=== PATIENT | female | born 1965 | race Caucasian/White ===

== ENCOUNTER 2019-06-13 17:31 | Inpatient (IN) | payer BC, OTHER ==
[~2019-06-13] VITALS: Ht 152.4 cm; Wt 62.1 kg
[2019-06-13 17:32] VITALS: BP 98/64
[2019-06-13 18:00] LABS: URINE BLOOD TRACE (Negative); URINE COLOR YELLOW; URINE GLUCOSE-RANDOM* NEGATIVE (Negative); URINE KETONES TRACE (Negative); URINE NITRITE-REFLEX NEGATIVE (Negative); URINE PROTEIN (DIPSTICK) TRACE (Negative); URINE SPECIFIC GRAVITY 1.015 (1.005-1.035); URINE UROBILINOGEN 0.2 E.U./dl (0.2-1.0)
[2019-06-13 18:02] LABS: ICTOTEST (BILI CONFIRMATORY) Negative (Negative); URINE BILIRUBIN NEGATIVE (Negative); URINE CLARITY HAZY; URINE LEUKOCYTES-REFLEX 3+ (Negative)
[2019-06-13 18:13] LABS: BACTERIA-REFLEX >30 Many /HPF (None Seen); CASTS None Seen /LPF (None Seen); SQUAMOUS >10 Many /LPF (0-3); URINE WBC-REFLEX >25 Many /HPF (0-5)
[2019-06-13 18:14] LABS: CRYSTALS None Seen /LPF (None Seen); URINE RBC 0-2 Rare /HPF (0-2)
[2019-06-13 19:14] LABS: HEMATOCRIT 32.8 % (37.0-47.0); HEMOGLOBIN 10.9 gm/dL (12.0-15.0); MCH 30.8 pg (26.0-34.0); MCHC 33.1 g/dL (28.0-37.0); MCV 92.9 fL (80.0-100.0); PLATELET COUNT 266 thou/uL (150-400); RBC 3.53 mil/uL (4.20-5.00); RDW 13.2 % (10.5-14.5); WBC 21.5 thou/uL (4.0-11.0)
[2019-06-13 19:25] LABS: CALCIUM 8.2 mg/dL (8.5-10.1); POTASSIUM 3.3 mmol/L (3.5-5.1)
[2019-06-13 19:30] LABS: ALBUMIN 2.7 g/dL (3.4-5.0); TOTAL BILIRUBIN 0.4 mg/dL (<0.1-1.0); TOTAL PROTEIN 5.8 g/dL (6.4-8.2)
[2019-06-13 19:47] LABS: ABSOLUTE NEUTROPHILS 19.4 thou/uL (1.4-8.2)
[2019-06-13 20:56] VITALS: BP 106/67
[2019-06-13 22:10] VITALS: BP 108/66
[2019-06-14 04:37] VITALS: BP 96/58
[2019-06-14 06:13] LABS: HEMATOCRIT 32.4 % (37.0-47.0); HEMOGLOBIN 10.6 gm/dL (12.0-15.0); MCH 30.3 pg (26.0-34.0); MCHC 32.7 g/dL (28.0-37.0); MCV 92.8 fL (80.0-100.0); RBC 3.49 mil/uL (4.20-5.00); RDW 13.2 % (10.5-14.5); WBC 13.1 thou/uL (4.0-11.0)
[2019-06-14 06:32] LABS: CALCIUM 8.2 mg/dL (8.5-10.1); CREATININE 0.7 mg/dL (0.6-1.0); POTASSIUM 3.3 mmol/L (3.5-5.1)
[2019-06-14 07:58] VITALS: BP 104/60
--- NOTE | 2019-06-14 08:20 | NUR ---
pt oriented to room call light and poc.admitted with pyelonephritis denies pain iv in left forearm infusing ns @125cc's hr voiding qs cloudy light yellow urine slept most of night
[2019-06-14 15:52] VITALS: BP 109/57
--- NOTE | 2019-06-14 18:25 | NUR ---
Assumed pt care at 7am.Assessment completed.vss.Pt requested for home med to be resumed this am.Dr Quintanilla notified but only 3 was granted.Medicated pt with tylenol for flank pain with partial relief.Later this evening,pt c/o bloating and mom was given with relief.Pt mom here,updates given.Ultram given later this evening for headache.Will continue to monitor.
[2019-06-14] MEDS ORDERED: CLONAZEPAM 0.50.5 M1 PO (19:30)
[2019-06-14] MEDS ORDERED: CYMBALTA60 MG PO (19:31)
[2019-06-14] MEDS ORDERED: HYDROCHLOROTHIA25 M2 PO (19:33)
[2019-06-14] MEDS ORDERED: MINIVELLE1 EAC1 PO (19:33)
[2019-06-14] MEDS ORDERED: SYNTHROID25 MC1 PO (19:34)
[2019-06-14] MEDS ORDERED: COZAAR 25 MG TA25 M2 PO (19:35)
[2019-06-14 19:48] VITALS: BP 111/72
--- NOTE | 2019-06-15 04:10 | NUR ---
ASSUMED CARE OF PT AT 1900HRS. PT IS AOX4 AND UP AD ELANA. PT MAKES NEEDS BE KNOWN. PT COMPLAINED OF SOME PAIN AND WAS TREATED WITH PRN PAIN MEDS. VSS AND NO S/S OF ACUTE DISTRESS. PT WAS ABLE TO GET COMFORTABLE AND SLEEP PART OF THE SHIFT. WILL CONTINUE TO MONITOR.
[2019-06-15 07:14] VITALS: BP 116/75
[2019-06-15] MEDS ORDERED: KEFLEX500 M2 PO (08:42)
[2019-06-15 09:08] VITALS: BP 116/75
--- NOTE | 2019-06-15 13:10 | NUR ---
Received awake on bed. Due medications given as prescribed, able to swallow meds w/o difficulty. A+Ox4. No complaints of pain upon assessment. Vital signs stable. On room air. With NS 1t 75cc/hr, infusing well at L FA. Up ad selvin. On heart healthy meals- tolerating well; no nausea, no vomiting and no abdominal pain noted. Pt seen by Dr Quintanilla- discharge orders made. Discharge instruction, follow up schedule, prescription given to patient. IV discontinued. Pt brought down by wheelchair with her personal belonging.
== END 2019-06-15 11:15 | disposition home or self-care (01) | DRG 690 ==
LOC: ER 17:31 → EROBS 20:39 → 4W 21:10 → ENTRNSPT 06-15 10:44 → 4W 06-15 11:15
PROVIDERS: Nurse Practitioner Family; Physician Assistant; ADMIT Hospitalist
DX: N12 Tubulo-interstitial nephritis, not specified as acute or chronic (principal); E87.1 Hypo-osmolality and hyponatremia; N30.90 Cystitis, unspecified without hematuria; I10 Essential (primary) hypertension; E03.9 Hypothyroidism, unspecified; F41.9 Anxiety disorder, unspecified; F32.9 Major depressive disorder, single episode, unspecified; F90.9 Attention-deficit hyperactivity disorder, unspecified type; G89.29 Other chronic pain; M54.9 Dorsalgia, unspecified; I95.9 Hypotension, unspecified; Z88.2 Allergy status to sulfonamides
CPT/HCPCS: 10040; 10045